=== PATIENT | female | born 1990 | race Caucasian/White ===

== ENCOUNTER 2018-04-04 09:08 | Emergency (ER) | payer OTHER ==
[2018-04-04 09:58] LABS: Basophils % (Auto) 0.6 % (0.0-1.8); Eosinophils # (Auto) 0.1 K/mm3 (0.0-0.4); Eosinophils % (Auto) 1.2 % (0.0-4.3); Hemoglobin 11.3 gm/dl (10.1-14.3); Lymphocytes # (Auto) 0.7 K/mm3 (1.2-5.4); Lymphocytes % (Auto) 11.4 % (13.4-35.0); Mean Corpuscular HGB Conc 32 % (30-34); Mean Corpuscular Hemoglobin 27 pg (28-32); Mean Corpuscular Volume 85 fl (79-97); Monocytes # (Auto) 0.5 K/mm3 (0.0-0.8); Monocytes % (Auto) 8.3 % (0.0-7.3); Platelet Count 207 K/mm3 (140-440); Red Blood Count 4.13 M/mm3 (3.65-5.03); Red Cell Distribution Width 15.4 % (13.2-15.2)
[2018-04-04 10:11] LABS: Alanine Aminotransferase 10 units/L (7-56); BUN/Creatinine Ratio 11; Blood Urea Nitrogen 8 mg/dL (7-17); Calcium 8.3 mg/dL (8.4-10.2); Hemolysis Index 5
--- NOTE | 2018-04-04 10:19 | Emergency Department Report ---
HPI - General Chief Complaint: Medical Clearance Time Seen by Provider: 04/04/18 09:52 - HPI HPI: 27-year-old female presents to the emergency department via EMS from [facility], where she is currently being treated for depression and suicidal ideations. The patient says that she was sent here because she was feeling very dizzy, started sweating and had some low blood pressure. The [facility] staff member, who is bedside, says that the patient went unresponsive until EMS arrived. Currently the patient says that she just feels "cold." She says that she just recently started a new medication, Abilify, last night for the first time. Otherwise she denies any other consistent medications or past medical history. ED Past Medical Hx - Past Medical History Previous Medical History?: Yes Hx Psychiatric Treatment: Yes ([facility]) - Surgical History Past Surgical History?: No - Social History Smoking Status: Unknown if ever smoked - Medications Home Medications: Home Medications Medication Instructions Recorded Confirmed Last Taken Type Nitrofurantoin Haines/M-Cryst 100 mg PO Q12HR #14 capsule 04/04/18 Unknown Rx [Macrobid CAP] ED Review of Systems ROS: Stated complaint: PROMISE CARDIA Other details as noted in HPI Comment: All other systems reviewed and negative Constitutional: chills, diaphoresis. denies: fever Eyes: denies: eye pain, eye discharge, vision change ENT: denies: ear pain, throat pain Respiratory: denies: cough, shortness of breath, wheezing Cardiovascular: syncope (questionable). denies: chest pain Gastrointestinal: denies: abdominal pain, nausea, diarrhea Genitourinary: denies: urgency, dysuria, discharge Musculoskeletal: denies: back pain, joint swelling, arthralgia Skin: denies: rash, lesions Neurological: denies: numbness, vertigo Physical Exam - Physical Exam Vital Signs: Vital Signs 04/04/18 04/04/18 04/04/18 09:30 09:31 09:46 Temperature 98.4 F Pulse Rate 45 L 55 L 68 Respiratory 13 18 16 Rate Blood Pressure 91/62 93/63 93/63 Blood Pressure 93/63 [Right] O2 Sat by Pulse 99 98 99 Oximetry Physical Exam: GENERAL: The patient is well-developed well-nourished. HENT: Normocephalic. Atraumatic. Patient has moist mucous membranes. EYES: Extraocular motions are intact. Pupils equal reactive to light bilaterally. Fatigable horizontal nystagmus. NECK: Supple. Trachea is midline. CHEST/LUNGS: Clear to auscultation. There is no respiratory distress noted. HEART/CARDIOVASCULAR: Regular. There is no tachycardia. There is no murmur. ABDOMEN: Abdomen is soft, nontender. Patient has normal bowel sounds. There is no abdominal distention. SKIN: Skin is warm and dry. NEURO: The patient is awake, alert, and oriented. The patient is cooperative. The patient has no focal neurologic deficits. The patient has normal speech. Cranial nerves II through XII grossly intact. MUSCULOSKELETAL: There is no tenderness or deformity. There is no limitation range of motion. There is no evidence of acute injury. ED Course Vital Signs 04/04/18 04/04/18 04/04/18 09:30 09:31 09:46 Temperature 98.4 F Pulse Rate 45 L 55 L 68 Respiratory 13 18 16 Rate Blood Pressure 91/62 93/63 93/63 Blood Pressure 93/63 [Right] O2 Sat by Pulse 99 98 99 Oximetry ED Medical Decision Making - Lab Data Result diagrams: 04/04/18 09:46 04/04/18 09:46 - EKG Data -: EKG Interpreted by Ar EKG shows normal: sinus rhythm, axis, intervals, QRS complexes, ST-T waves Rate: bradycardia (55 bpm) - EKG Data When compared to previous EKG there are: previous EKG unavailable Interpretation: other (sinus bradycardia) - Radiology Data Radiology results: report reviewed CT of the head does not show any acute intracranial process including no ischemia, shift, mass, bleeding or skull fracture. - Medical Decision Making This patient presents from her psychiatric facility after there was some episode where she passed out and/or became unresponsive. Since being in the emergency department she has been awake, alert, oriented without any significant complaints other than a mild headache and feeling cold. On examination heart and lung sounds are normal auscultation. There is no focal, motor or sensory deficits in her cranial nerves are intact. CT scan of the head did not show any bleed, shift, mass or any other acute process. Patient did have some bradycardia and borderline low blood pressure when she first arrived but that all resolved without any medications or significant intervention. The work was mostly unremarkable. No signs of any leukocytosis, electrolyte abnormalities, renal insufficiency, glucose abnormalities. She has a negative troponin and normal thyroid function. She is not . Urinalysis shows a very mild urinary tract infection with 12 white blood cells and small leukocyte esterase. She will be treated with Macrobid. EKG shows some mild sinus bradycardia but otherwise no dysrhythmia, ST elevation ID or signs of ischemia. It appears that the only medication that she is on is Abilify. Her urine drug screen was positive for benzodiazepines. Apparently the urine drug screen for her clearance originally for the facility was negative for benzodiazepine so it is possible that she got a hold of a benzodiazepine. Abilify is also a new medication for her. It could've been a combination of these medications or each individual medication. Differential also includes orthostatic hypotension, vasovagal episode. Nonetheless the patient was ambulatory around the emergency department without any instability. For all these reasons she appears safe for discharge back to the facility at this time. She's been encouraged to follow up with the primary care physician as soon as she is able to do so, but to return to the emergency department with any further episodes of passing out, or with any acute distress. - Differential Diagnosis substance abuse, orthostatic hypotension, vasovagal, dysrhythmia, TIA Critical Care Time: No Critical care attestation.: If time is entered above; I have spent that time in minutes in the direct care of this critically ill patient, excluding procedure time. ED Disposition Clinical Impression: UTI (urinary tract infection) Qualifiers: Urinary tract infection type: acute cystitis Hematuria presence: without hematuria Qualified Code(s): N30.00 - Acute cystitis without hematuria Syncope Qualifiers: Syncope type: unspecified Qualified Code(s): R55 - Syncope and collapse Disposition: DC/TX-65 PSY HOSP/PSY UNIT Is pt being admited?: No Condition: Stable Instructions: Urinary Tract Infection in Women (ED), Syncope (ED) Additional Instructions: Please follow up with a primary care physician as soon as able to do so. Please have a discussion with the psychiatrist regarding the newly started psychiatric medications and no previous symptoms. Return to the emergency department immediately with any recurrent episodes of passing out, worsening of your symptoms, or with any acute distress. Prescriptions: Nitrofurantoin Haines/M-Cryst [Macrobid CAP] 100 mg PO Q12HR #14 capsule Referrals: PRIMARY CARE, [Primary Care Provider] - AUGUSTINE Time of Disposition: 12:12
[2018-04-04 11:27] LABS: Amphetamine Screen,Urine PRESUMPTIVE NEGATIVE; Cannabinoid Screen,Urine PRESUMPTIVE NEGATIVE; Cocaine Screen,Urine PRESUMPTIVE NEGATIVE; Methadone Screen,Urine PRESUMPTIVE NEGATIVE; Opiate Screen,Urine PRESUMPTIVE NEGATIVE
[2018-04-04 11:47] LABS: Benzodiazepines Screen,Urine PRESUMPTIVE POSITIVE
--- NOTE | 2018-04-04 11:47 | Cat Scan Report ---
FINAL REPORT EXAM: CT HEAD/BRAIN WO CON HISTORY: Dizzy, syncope TECHNIQUE: CT examination of the head without IV contrast PRIORS: None. FINDINGS: Patient motion artifact degrades image quality and limits the examination. No acute air-fluid level visualized in the included air-filled sinuses. Bone windows demonstrate no acute fracture. The brain is without mass, mass effect, hemorrhage, or acute infarct. There is no extra-axial intracranial bleed, brain bleed, or midline shift. The ventricles and sulci are age-appropriate. IMPRESSION: No acute CVA, intracranial bleed, or brain mass
[2018-04-04 11:48] LABS: Bilirubin,Urine NEG (Negative); Blood,Urine SM (Negative); Color,Urine Amber (Yellow); Mucus,Urine 3+ /HPF
[2018-04-04 14:34] VITALS: BP 99/68
== END 2018-04-04 14:42 ==
LOC: ED 09:08
DX: N39.0 Urinary tract infection, site not specified (principal); R55 Syncope and collapse
CPT/HCPCS: 36415; 70450; 80053; 80307; 81001; 84443; 84484; 84703; 85025; 93005; 93010; 99285